=== PATIENT | female | born 1935 ===

== ENCOUNTER 2020-12-30 13:06 | Inpatient (IN) ==
[2020-12-30 14:01] LABS: INR 1.94 (0.82-1.09)
[2020-12-30 14:10] LABS: ABS Eosinophils 0.2 10^3/ul (0-0.6); ABS Lymphocytes 0.7 10^3/ul (1.0-4.8); ABS Monocytes 0.1 10^3/ul (0-0.8); ABS Neutrophils 3.8 10^3/ul (1.5-7.7); Eosinophil % 3.5 %; Hematocrit 25 % (35-47); Hemoglobin 8.2 g/dL (12.0-16.0); Lymphocyte % 13.9 %; Mean Corpuscular HGB Conc 33 g/dL (31-36); Mean Corpuscular Hemoglobin 44 pg (27-31); Mean Corpuscular Volume 131 fL (80-97); Mean Platelet Volume 11.7 fL (7.4-10.4); Nucleated Red Blood Cells % 0.1; Platelet Count 28 10^3/uL (150-450); Red Blood Count 1.89 10^6 /uL (3.70-4.87); Red Cell Distribution Width 26 % (10-15); White Blood Count 4.8 10^3/uL (3.5-10.8)
[2020-12-30 14:13] LABS: Troponin I 0.01 ng/mL (<0.03)
[2020-12-30 14:14] LABS: ALT 33 U/L (7-52); AST 30 U/L (13-39); Albumin 3.5 g/dL (3.2-5.2); Albumin/Globulin Ratio 1.1 (1-3); Alkaline Phosphatase 68 U/L (34-104); Anion Gap 5 mmol/L (2-11); BUN/Creatinine Ratio 34.7 (8-20); Blood Urea Nitrogen 33 mg/dL (6-24); C Reactive Protein 3.69 mg/L (<8.01); CO2 Carbon Dioxide 26 mmol/L (22-32); Calcium 8.7 mg/dL (8.6-10.3); Chloride 104 mmol/L (101-111); EGFR African American 67.6 (>60); EGFR Non-African American 55.9 (>60); Globulin 3.1 g/dL (2-4); Glucose 99 mg/dL (70-100); Magnesium 1.9 mg/dL (1.9-2.7); Potassium 3.9 mmol/L (3.5-5.0); Sodium 135 mmol/L (135-145); Total Protein 6.6 g/dL (6.4-8.9)
[2020-12-30 14:21] LABS: Acanthocytes 1+
[2020-12-30 14:32] LABS: TSH Ultra Thyroid Stim Horm 2.17 mcIU/mL (0.34-5.60)
[2020-12-30 15:31] LABS: Urine Appearance Clear; Urine Bilirubin Negative (Negative); Urine Blood Negative (Negative); Urine Color Straw; Urine Glucose Negative (Negative); Urine Ketones Negative (Negative); Urine Nitrite Negative (Negative); Urine Protein Negative (Negative); Urine Specific Gravity 1.004 (1.010-1.030); Urine Urobilinogen Negative (Negative)
[2020-12-30 15:34] LABS: Urine Bacteria Absent (Absent); Urine Red Blood Cell Absent (Absent); Urine Squamous Epithelial Cell Present (Absent); Urine White Blood Cell 2+(11-20/hpf) (Absent)
[2020-12-30 16:44] LABS: Hematocrit for Retic CNT 25 % (35-47); RBC Retic Count 1.89 10^6/uL (3.70-4.87)
[2020-12-30 16:54] LABS: Corrected Retic Count 0.3 % (0.5-1.5); Immature Retic Fraction 0.62
[2020-12-30 17:16] LABS: Folate > 20.00 ng/mL (>3.99)
[2020-12-30 17:17] LABS: Vitamin B12 989 pg/mL (180-914)
[2020-12-30 18:11] LABS: Ferritin 559.5 ng/mL (11-307)
[2020-12-30] MEDS: Timolol 0.5% OPTH.SOL BTL RIGHT EYE SCH (20:06)
[2020-12-30] MEDS: Latanoprost 0.005% 2.5 ml BTL LEFT EYE SCH (20:07)
[2020-12-31 06:50] LABS: Albumin 3.3 g/dL (3.2-5.2); Albumin/Globulin Ratio 1.2 (1-3); BUN/Creatinine Ratio 35.7 (8-20); Calcium 8.3 mg/dL (8.6-10.3); EGFR Non-African American 64.4 (>60); Globulin 2.8 g/dL (2-4); Magnesium 1.9 mg/dL (1.9-2.7); Potassium 4.4 mmol/L (3.5-5.0); Total Bilirubin 1.2 mg/dL (0.2-1.0); Total Protein 6.1 g/dL (6.4-8.9)
[2020-12-31 07:45] LABS: Hematocrit 24 % (35-47); Hemoglobin 8.1 g/dL (12.0-16.0); Mean Corpuscular HGB Conc 35 g/dL (31-36); Mean Corpuscular Hemoglobin 45 pg (27-31); Mean Corpuscular Volume 130 fL (80-97); Red Blood Count 1.81 10^6 /uL (3.70-4.87); Red Cell Distribution Width 26 % (10-15); White Blood Count 3.3 10^3/uL (3.5-10.8)
[2020-12-31] MEDS: Timolol 0.5% OPTH.SOL BTL RIGHT EYE SCH ×2 (09:16→21:00)
[2020-12-31 09:21] LABS: Platelet Count 24 10^3/uL (150-450)
[2020-12-31 09:24] LABS: ABS Eosinophils 0.2 10^3/ul (0-0.6); ABS Lymphocytes 0.6 10^3/ul (1.0-4.8); ABS Neutrophils 2.3 10^3/ul (1.5-7.7); Lymphocyte % 19.8 %
[2020-12-31] MEDS: Magic MouthWash1-BEN/MAAL/LIDO 180 ML BTL SWISH SPIT SCH ×3 (13:21→20:58)
[2020-12-31] MEDS ORDERED: Lactated Ringers 1000 ml BAG 1,000 ML IV ONE (16:28)
[2020-12-31] MEDS: Latanoprost 0.005% 2.5 ml BTL LEFT EYE SCH (21:00)
[2021-01-01 06:22] LABS: BUN/Creatinine Ratio 34.2 (8-20); EGFR African American 87.5 (>60); EGFR Non-African American 72.3 (>60); Potassium 4.2 mmol/L (3.5-5.0)
[2021-01-01 06:39] LABS: ABS Eosinophils 0.2 10^3/ul (0-0.6); ABS Lymphocytes 0.7 10^3/ul (1.0-4.8); ABS Monocytes 0.1 10^3/ul (0-0.8); ABS Neutrophils 2.2 10^3/ul (1.5-7.7); Eosinophil % 6.7 %; Hematocrit 21 % (35-47); Hemoglobin 7.2 g/dL (12.0-16.0); Lymphocyte % 21.3 %; Mean Corpuscular HGB Conc 35 g/dL (31-36); Mean Corpuscular Hemoglobin 45 pg (27-31); Mean Corpuscular Volume 130 fL (80-97); Mean Platelet Volume 11.3 fL (7.4-10.4); Nucleated Red Blood Cells % 0.4; Platelet Count 27 10^3/uL (150-450); Red Blood Count 1.59 10^6 /uL (3.70-4.87); Red Cell Distribution Width 26 % (10-15); White Blood Count 3.3 10^3/uL (3.5-10.8)
[2021-01-01 06:41] LABS: Polychromasia 1+
[2021-01-01] MEDS: Magic MouthWash1-BEN/MAAL/LIDO 180 ML BTL SWISH SPIT SCH ×4 (09:04→21:35)
[2021-01-01] MEDS: Timolol 0.5% OPTH.SOL BTL RIGHT EYE SCH ×2 (09:04→21:35)
[2021-01-01] MEDS: Latanoprost 0.005% 2.5 ml BTL LEFT EYE SCH (21:35)
[2021-01-02 06:07] LABS: Hematocrit 24 % (35-47); Hemoglobin 8.3 g/dL (12.0-16.0); Mean Corpuscular HGB Conc 34 g/dL (31-36); Mean Corpuscular Hemoglobin 42 pg (27-31); Mean Corpuscular Volume 122 fL (80-97); Red Blood Count 1.98 10^6 /uL (3.70-4.87); Red Cell Distribution Width 34 % (10-15); White Blood Count 3.7 10^3/uL (3.5-10.8)
[2021-01-02 06:17] LABS: BUN/Creatinine Ratio 28.8 (8-20); Calcium 7.9 mg/dL (8.6-10.3); EGFR African American 82.5 (>60); EGFR Non-African American 68.2 (>60); Potassium 4.3 mmol/L (3.5-5.0)
[2021-01-02 06:52] LABS: ABS Eosinophils 0.3 10^3/ul (0-0.6); ABS Lymphocytes 0.7 10^3/ul (1.0-4.8); ABS Monocytes 0.2 10^3/ul (0-0.8); ABS Neutrophils 2.5 10^3/ul (1.5-7.7); Eosinophil % 7.6 %; Lymphocyte % 17.8 %; Mean Platelet Volume 11.4 fL (7.4-10.4); Nucleated Red Blood Cells % 0.1
[2021-01-02 06:54] LABS: Platelet Count 22 10^3/uL (150-450)
[2021-01-02 06:57] LABS: Polychromasia 1+
[2021-01-02] MEDS: Magic MouthWash1-BEN/MAAL/LIDO 180 ML BTL SWISH SPIT SCH ×4 (07:24→21:29)
[2021-01-02] MEDS: Timolol 0.5% OPTH.SOL BTL RIGHT EYE SCH ×2 (07:25→21:29)
[2021-01-02] MEDS: Latanoprost 0.005% 2.5 ml BTL LEFT EYE SCH (21:29)
[2021-01-02] MEDS: Ondansetron 4 mg VIAL 2 MG/ML 2 ml VIAL IV PRN (21:48)
[2021-01-03 06:58] LABS: Hematocrit 24 % (35-47); Hemoglobin 8.2 g/dL (12.0-16.0); Mean Corpuscular HGB Conc 34 g/dL (31-36); Mean Corpuscular Hemoglobin 42 pg (27-31); Mean Corpuscular Volume 123 fL (80-97); Red Blood Count 1.96 10^6 /uL (3.70-4.87); Red Cell Distribution Width 33 % (10-15)
[2021-01-03 06:59] LABS: ABS Eosinophils 0.3 10^3/ul (0-0.6); ABS Lymphocytes 0.7 10^3/ul (1.0-4.8); ABS Monocytes 0.3 10^3/ul (0-0.8); ABS Neutrophils 2.5 10^3/ul (1.5-7.7); Eosinophil % 8.8 %; Lymphocyte % 17.8 %; Nucleated Red Blood Cells % 0.1
[2021-01-03 07:12] LABS: Potassium 4.6 mmol/L (3.5-5.0); Total Bilirubin 0.7 mg/dL (0.2-1.0)
[2021-01-03 07:18] LABS: Albumin/Globulin Ratio 1.2 (1-3); BUN/Creatinine Ratio 24.7 (8-20); EGFR African American 72.9 (>60); EGFR Non-African American 60.3 (>60); Globulin 2.5 g/dL (2-4); Total Protein 5.5 g/dL (6.4-8.9)
[2021-01-03 07:42] LABS: Mean Platelet Volume 10.9 fL (7.4-10.4); Platelet Count 24 10^3/uL (150-450)
[2021-01-03 07:47] LABS: Polychromasia 1+
[2021-01-03] MEDS: Magic MouthWash1-BEN/MAAL/LIDO 180 ML BTL SWISH SPIT SCH ×4 (08:44→20:16)
[2021-01-03] MEDS: Timolol 0.5% OPTH.SOL BTL RIGHT EYE SCH ×2 (08:44→20:16)
[2021-01-03] MEDS: Latanoprost 0.005% 2.5 ml BTL LEFT EYE SCH (20:15)
[2021-01-04] MEDS: Ondansetron 4 mg VIAL 2 MG/ML 2 ml VIAL IV PRN (01:37)
[2021-01-04] MEDS ORDERED: Al Hydrox/Mg Hydrox/Simet LIQ 30 ML UDC PO ONE (04:27)
[2021-01-04 07:13] LABS: Hematocrit 24 % (35-47); Hemoglobin 8.1 g/dL (12.0-16.0); Mean Corpuscular HGB Conc 34 g/dL (31-36); Mean Corpuscular Hemoglobin 43 pg (27-31); Mean Corpuscular Volume 124 fL (80-97); Red Blood Count 1.91 10^6 /uL (3.70-4.87); Red Cell Distribution Width 32 % (10-15); White Blood Count 5.4 10^3/uL (3.5-10.8)
[2021-01-04 07:21] LABS: BUN/Creatinine Ratio 26.6 (8-20); Calcium 7.8 mg/dL (8.6-10.3); EGFR African American 83.7 (>60); EGFR Non-African American 69.2 (>60); Potassium 4.4 mmol/L (3.5-5.0)
[2021-01-04 08:30] LABS: ABS Eosinophils 0.4 10^3/ul (0-0.6); ABS Lymphocytes 0.6 10^3/ul (1.0-4.8); ABS Monocytes 0.7 10^3/ul (0-0.8); ABS Neutrophils 3.7 10^3/ul (1.5-7.7); Lymphocyte % 10.5 %; Nucleated Red Blood Cells % 0.1; Platelet Count 25 10^3/uL (150-450)
[2021-01-04 08:31] LABS: Polychromasia 1+
[2021-01-04] MEDS: Magic MouthWash1-BEN/MAAL/LIDO 180 ML BTL SWISH SPIT SCH ×2 (09:12→13:47)
[2021-01-04] MEDS: Timolol 0.5% OPTH.SOL BTL RIGHT EYE SCH (13:46)
[2021-01-04 14:14] VITALS: BP 117/63
== END 2021-01-04 17:10 | disposition home or self-care (01) | DRG 810 ==
LOC: ED 13:06 → MED 17:07
PROVIDERS: ADMIT Hospitalist; ATTEND Student in an Organized Health Care Education/Training Program

== ENCOUNTER 2021-02-04 07:16 | Inpatient (IN) ==
[2021-02-04 08:34] LABS: ABS Basophils 0.1 10^3/ul (0-0.2); ABS Eosinophils 0.2 10^3/ul (0-0.6); ABS Lymphocytes 1.6 10^3/ul (1.0-4.8); ABS Monocytes 0.9 10^3/ul (0-0.8); ABS Neutrophils 4.3 10^3/ul (1.5-7.7); Eosinophil % 3.2 %; Hematocrit 37 % (35-47); Lymphocyte % 22.7 %; Mean Corpuscular HGB Conc 32 g/dL (31-36); Mean Corpuscular Hemoglobin 37 pg (27-31); Mean Corpuscular Volume 115 fL (80-97); Mean Platelet Volume 10.9 fL (7.4-10.4); Nucleated Red Blood Cells % 0.1; Platelet Count 100 10^3/uL (150-450); Red Blood Count 3.25 10^6 /uL (3.70-4.87); Red Cell Distribution Width 21 % (10-15)
[2021-02-04 08:39] LABS: Activated Partial Thrombo Time 38.5 seconds (26.0-38.0)
[2021-02-04 08:44] LABS: Albumin 3.5 g/dL (3.2-5.2); Albumin/Globulin Ratio 0.8 (1-3); Calcium 8.9 mg/dL (8.6-10.3); EGFR African American 69.3 (>60); EGFR Non-African American 57.3 (>60); Globulin 4.2 g/dL (2-4); Potassium 4.1 mmol/L (3.5-5.0); Total Bilirubin 0.7 mg/dL (0.2-1.0); Total Protein 7.7 g/dL (6.4-8.9)
[2021-02-04 08:46] LABS: Troponin I 0.01 ng/mL (<0.03)
[2021-02-04] MEDS ORDERED: Furosemide 40 mg/4 ml IV VIAL IV SLOW PU ONE (08:55)
[2021-02-04 09:09] LABS: INR 2.21 (0.82-1.09)
[2021-02-04] MEDS ORDERED: Dextrose 50% Syringe 50 ml 25 GM/50 ML SYRINGE IV PUSH PRN (10:14)
[2021-02-04] MEDS ORDERED: Albuterol 2.5mg/3 ml (0.083%) NEB.SOLN INH PRN (20:02)
[2021-02-04] MEDS ORDERED: Latanoprost 0.005% 2.5 ml BTL LEFT EYE SCH (21:00)
[2021-02-05 06:21] LABS: Hematocrit 35 % (35-47); Hemoglobin 11.3 g/dL (12.0-16.0); Mean Corpuscular HGB Conc 33 g/dL (31-36); Mean Corpuscular Hemoglobin 37 pg (27-31); Mean Corpuscular Volume 113 fL (80-97); Mean Platelet Volume 10.9 fL (7.4-10.4); Platelet Count 93 10^3/uL (150-450); Red Blood Count 3.07 10^6 /uL (3.70-4.87); Red Cell Distribution Width 21 % (10-15); White Blood Count 6.6 10^3/uL (3.5-10.8)
[2021-02-05 06:31] LABS: Calcium 8.4 mg/dL (8.6-10.3); EGFR African American 68.5 (>60); EGFR Non-African American 56.6 (>60); Potassium 3.9 mmol/L (3.5-5.0)
[2021-02-05] MEDS ORDERED: Furosemide 40 mg/4 ml IV VIAL IV SCH (09:00)
[2021-02-05 11:45] VITALS: BP 155/94
== END 2021-02-05 17:35 | disposition home or self-care (01) | DRG 291 ==
LOC: ED 07:16 → MEDTELE 10:11 → INTOOBSV 10:11 → MEDTELE 11:29
PROVIDERS: ADMIT Hospitalist; ATTEND Internal Medicine